=== PATIENT | male | born 2000 | race Caucasian/White ===

== ENCOUNTER 2023-04-05 13:11 | Emergency (ER) | payer OTHER ==
[2023-04-05 14:11] LABS: ALT (SGPT) 16 U/L (8-55); AST (SGOT) 18 U/L (5-34); Albumin 4.5 g/dL (3.5-5.0); Alkaline Phosphatase 76 U/L (40-110); Anion Gap 14 mmol/L (10-20); BUN (Urea Nitrogen) 8 mg/dL (8.9-20.6); Bilirubin, Total 0.7 mg/dL (0.2-1.2); Calc. Creatinine Clearance 0 mL/min (70-130); Calcium 9.1 mg/dL (7.8-10.44); Carbon Dioxide 24 mmol/L (22-29); Chloride 103 mmol/L (98-107); Estimated GFR 128; Globulin 2.8 g/dL (2.4-3.5); Glucose 83 mg/dL (70-105); Protein, Total 7.3 g/dL (6.0-8.3); Sodium 137 mmol/L (136-145)
== END 2023-04-05 14:58 | disposition home or self-care (01) ==
LOC: CSHERS 13:11
DX: R07.9 Chest pain, unspecified (principal)
CPT/HCPCS: 80053; 93005; 93010